=== PATIENT | female | born 1995 | race African-American/Black ===

== ENCOUNTER 2020-01-01 15:37 | Emergency (ER) | payer OTHER, SELFPAY ==
[2020-01-01 15:45] VITALS: BP 120/77; PULSE 91; RESP 16; TEMP 36.6; O2SAT 100
--- NOTE | 2020-01-01 15:45 | ED.GENADULT ---
HPI - General Adult General Chief complaint: Upper Respiratory Infection Stated complaint: SORE THROAT Time Seen by Provider: 01/01/20 15:51 Source: patient and RN notes reviewed Mode of arrival: ambulatory Limitations: no limitations History of Present Illness HPI narrative: This patient had onset on Saturday, 4 days ago, of a sore throat without any fever. She is not had any ear pain or drainage from the ears. She said no nasal drainage. She has had no cough. She has had no rashes. She has had no nausea, no vomiting, no diarrhea. She has had no hematuria, no dysuria, no pyuria. She has not been traveling. She said no known exposure to anyone with strep throat, mono, influenza, bronchitis, pneumonia that she is aware of. Related Data Home Medications Medication Instructions Recorded Confirmed Antbiotic 01/01/20 ibuprofen 200 mg PO Q6H PRN 01/01/20 01/01/20 ckgylaiwcrbjo-RN-eulwmbadwtkhb ml PO 01/01/20 [Vicks DayQuil Cold-Flu Relief] Allergies Allergy/AdvReac Type Severity Reaction Status Date / Time No Known Allergies Allergy Verified 01/01/20 15:49 Review of Systems Review of Systems: Narrative: CONSTITUTIONAL: Denies fever, chills, or sweats. Noncontributory except as pertains the past medical history and the history of the present illness. EYES: Denies visual changes, redness, or discharge. ENT: Denies rhinorrhea, congestion, sore throat, or otalgia. CARDIOVASCULAR: Denies chest pain, palpitations, or edema. RESPIRATORY: Denies cough or dyspnea. GASTROINTESTINAL: Denies abdominal pain, nausea, vomiting, or diarrhea. GENITOURINARY: Denies dysuria or hematuria. SKIN: Denies rash or itching. MUSCULOSKELETAL: Denies back pain, joint pain, or myalgia. NEUROLOGIC: Denies headache, numbness, or weakness. PSYCHIATRIC: Denies anxiety or depression. PMFSH Comments At time of signature, I have reviewed and agree with nursing past medical, surgical, social, and family history.Please see nursing chart for further information. There is no relevant family history pertinent to the presenting complaint. Exam Narrative: Exam Narrative: GENERAL: Well-appearing, well-nourished, and in no acute distress. HEAD: Normocephalic, atraumatic. EYES: PERRLA and EOMI. EARS: TM's clear bilaterally and the canals are clear. NOSE: Nares clear, no rhinorrhea or epistaxis. THROAT:Mucous membranes moist.Oropharynx is erythematous with exudates. NECK:Supple.No adenopathy of the neck, supraclavicular, axillary, or inguinal areas. There are no wheezes, no rales, no retractions, no use accessory muscles RESPIRATORY: No respiratory distress. Airway patent. Respirations non-labored. Clear to auscultation. Respirations. Patient's not cyanotic and not dyspneic. HEART: Regular rate and rhythm. No murmur heard. Normal peripheral pulses. ABDOMEN: Soft, nontender, nondistended, normal active bowel sounds.No masses. NO rebound or guarding, No organomegaly. There is no CVA pain. No pain McBurney's point. Patient is a negative Fenton sign and negative Rovsing sign. There are no pulsatile masses and no audible bruits. EXTREMITIES: No clubbing/cyanosis/ edema. Normal strength & range of motion. SKIN: Warm, dry.Normal color. No rashes or skin lesions. Patient is well-nourished well-hydrated and has moist mucous membranes and no tenting of the skin. NEURO: Alert and oriented. CN 2-12 grossly intact. No focal deficits. PSYCH: Normal mood and affect. Course Vital Signs Vital signs: Patient is afebrile and the other vital signs within normal limits. Medical Decision Making MDM Narrative Medical decision making narrative: Pharyngitis, possible strep throat. Lab Data Lab results narrative: The rapid strep test is negative and patient is aware of this the time the office visit and that a throat culture is pending and its purpose and timeframe to become available. Discharge Plan Discharge Patient Disposition: Home, Self-Care Condition: Stable Instruc
== END 2020-01-01 16:14 | disposition home or self-care (01) ==
PROVIDERS: Emergency Provider Family Medicine; PCP Family Medicine
DX: J02.9 Acute pharyngitis, unspecified (principal)
CPT/HCPCS: 87081; 87880; 99203; G0463

== ENCOUNTER 2020-01-23 15:49 | Emergency (ER) | payer OTHER, SELFPAY ==
[2020-01-23 15:51] VITALS: BP 117/83; PULSE 118; RESP 18; TEMP 36.6; O2SAT 97
--- NOTE | 2020-01-23 16:19 | ED.FEVER ---
HPI - Fever General Chief Complaint: Fever Stated Complaint: fever and cough Time Seen by Provider: 01/23/20 15:58 Source: patient and family Mode of arrival: ambulatory Limitations: no limitations History of Present Illness HPI Narrative: Patient is a 24-year-old female who presents emergency department for evaluation of flulike symptoms with fever chills body ache rhinorrhea congestion cough that began last night has not taken anything for her symptoms other than ibuprofen presents in no distress denies any vomiting diarrhea and on arrival is resting comfortably in the room in no distress Related Data Allergies Allergy/AdvReac Type Severity Reaction Status Date / Time No Known Allergies Allergy Verified 01/23/20 15:54 Review of Systems Review of Systems: All systems reviewed & are unremarkable except as noted in HPI and below PMFSH Social History Social History Gender identity (if verbalized by the patient): Female Exam Narrative: Exam Narrative: GENERAL: Well-appearing, well-nourished, and in no acute distress. HEAD: Normocephalic, atraumatic. EYES: PERRLA and EOMI. ENT: Nares clear, no rhinorrhea or epistaxis. Mucous membranes moist. Oropharynx without tonsillar hypertrophy exudate or other lesions. CHEST: Clear to auscultation. No respiratory distress. No wheezes rales or rhonchi HEART: Regular rate and rhythm. No murmur heard. EXTREMITIES: Normal range of motion. No edema. SKIN: Warm, dry, no rash. NEURO: No focal deficits. Alert and oriented x3. PSYCH: Normal mood and affect. 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 Patient in the room in no distress resting comfortably felt appropriate for outpatient reevaluation Vital Signs Vital signs: Vital Signs Temperature 97.9 F 01/23/20 15:51 Pulse Rate 118 H 01/23/20 15:51 Respiratory Rate 18 01/23/20 15:51 Blood Pressure 117/83 01/23/20 15:51 Pulse Oximetry 97 01/23/20 15:51 Temperature 97.9 F 01/23/20 15:51 Pulse Rate 118 H 01/23/20 15:51 Respiratory Rate 18 01/23/20 15:51 Blood Pressure 117/83 01/23/20 15:51 Pulse Oximetry 97 01/23/20 15:51 MDM - Fever MDM Narrative Medical decision making narrative: Patient with likely viral syndrome in the room in no distress aware of case findings treatment plan and diagnosis agreeing to follow-up as Lab Data Labs: Influenza A Screen Negative Reference Range: Negative Influenza B Screen Negative Reference Range: Negative Discharge Plan Discharge Clinical Impression: Acute viral syndrome Patient Disposition: Home, Self-Care Condition: Stable Instructions: Antibiotic Form, Viral Syndrome (ED) Additional Instructions: Follow up with your primary care provider within 5-7 days. Go to ER for shortness of breath, difficulty breathing, chest pain, fever/chills, weakness, nauseau/vomitting, etc. or any other concerns. Stay well-hydrated Take any prescribed medications as directed. Follow patient education sheets If you do not have a drug allergy to tylenol or motrin and can tolerate it then take tylenol or motrin as needed for discomfort/pain. Prescriptions: New ibuprofen [IBU] 600 mg tablet 600 mg PO Q6H PRN (Reason: fever or pain) Qty: 10 RF: 0 Follow-up/Referrals: Michelle,Anisa Olsen MD [Primary Care Provider] - Stand Alone Forms: Work/School Release IP
[2020-01-23 16:49] VITALS: BP 120/70; PULSE 100; RESP 20; TEMP 36.8; O2SAT 98
== END 2020-01-23 16:51 | disposition home or self-care (01) ==
PROVIDERS: Emergency Provider Emergency Medicine; PCP Family Medicine
DX: B34.9 Viral infection, unspecified (principal)
CPT/HCPCS: 87804; 99283

== ENCOUNTER 2020-07-02 14:44 | Emergency (ER) | payer OTHER, SELFPAY ==
[2020-07-02 14:49] VITALS: BP 144/91; PULSE 118; RESP 18; TEMP 37.6; O2SAT 100
--- NOTE | 2020-07-02 16:18 | ED.GENADULT ---
HPI - General Adult General Chief complaint: Upper Respiratory Infection Stated complaint: SORE THROAT Time Seen by Provider: 07/02/20 16:01 History of Present Illness HPI narrative: Patient is a 24-year-old female who presents to the ER with sore throat. Ongoing for the last day. Associated with myalgias. No documented fevers. No chills/sweats/chest pain/shortness of breath. No cough. Recently a coworker tested positive for COVID but she does not know if she was in direct contact with them. No known strep exposures either. Related Data Allergies Allergy/AdvReac Type Severity Reaction Status Date / Time No Known Allergies Allergy Verified 01/23/20 15:54 Review of Systems Review of Systems: All systems reviewed & are unremarkable except as noted in HPI and below Constitutional: Constitutional: Denies chills and Denies fever(s) ENT: Denies nasal congestion and Reports sore throat Cardiovascular: Cardiovascular: Denies chest pain Respiratory: Respiratory: Denies cough, Denies dyspnea and Denies wheezing Musculoskeletal: Comments: Myalgias PMFSH Past Medical History Medical History (Updated 07/02/20 @ 16:27 by Benji Diego MD) Healthy female adult Surgical History Surgical History (Updated 07/02/20 @ 16:19 by Benji Diego MD) No significant past surgical history Social History Social History (Updated 07/02/20 @ 16:19 by Benji Diego MD) Smoking status: Never smoker Substance use: never Gender identity (if verbalized by the patient): Female Exam Narrative: Exam Narrative: GENERAL: Well-appearing, well-nourished, and in no acute distress. HEAD: Normocephalic, atraumatic. ENT: Mucous membranes moist. Mild tonsillar hypertrophy with erythema and exudate bilaterally. Uvula midline and nonedematous. Normal-appearing tongue and dentition. CHEST: Clear to auscultation. No respiratory distress. HEART: Tachycardic and regular. Normal peripheral pulses. NEURO: Alert and oriented x3. Course Course Emergency Course: Strep test negative. COVID swab pending. Discussed with patient that she should self isolate follow-up with her PCP. Vital Signs Vital signs: Vital Signs Temperature 99.7 F H 07/02/20 14:49 Pulse Rate 118 H 07/02/20 14:49 Respiratory Rate 18 07/02/20 14:49 Blood Pressure 144/91 H 07/02/20 14:49 Pulse Oximetry 100 07/02/20 14:49 Temperature 99.7 F H 07/02/20 14:49 Pulse Rate 118 H 07/02/20 14:49 Respiratory Rate 18 07/02/20 14:49 Blood Pressure 144/91 H 07/02/20 14:49 Pulse Oximetry 100 07/02/20 14:49 Medical Decision Making Vital Signs Vital Signs: Vital Signs Temperature 99.7 F H 07/02/20 14:49 Pulse Rate 118 H 07/02/20 14:49 Respiratory Rate 18 07/02/20 14:49 Blood Pressure 144/91 H 07/02/20 14:49 Pulse Oximetry 100 07/02/20 14:49 Temperature 99.7 F H 07/02/20 14:49 Pulse Rate 118 H 07/02/20 14:49 Respiratory Rate 18 07/02/20 14:49 Blood Pressure 144/91 H 07/02/20 14:49 Pulse Oximetry 100 07/02/20 14:49 Lab Data Labs: Lab Results 07/02/20 Range/Units 15:00 SARS-CoV-2 RNA (RT-PCR) Pending Strep Screen Presumptive Negative *(Reference Range: Negative)* Discharge Plan Discharge Clinical Impression: Person under investigation for COVID-19 Patient Disposition: Home, Self-Care Condition: Stable Instructions: COVID-19 (Coronavirus Disease 2019) (ED) Additional Instructions: Your strep test was negative. Your COVID test is pending. Take Tylenol as needed for fevers and body aches. Make sure to stay hydrated. Your results should return in 2 to 3 days and will be sent to your primary care doctors. Additionally your strep test will be sent for culture and if that is positive you will be contacted. You should self quarantine for 14 days since he became symptomatic and you will need to talk to your doctor about returning to work. Return
[2020-07-02 16:36] VITALS: BP 132/78; PULSE 78; RESP 20; O2SAT 99
[2020-07-03 13:06] LABS: SARS-CoV-2 RNA PCR Negative
== END 2020-07-02 16:37 | disposition home or self-care (01) ==
PROVIDERS: Emergency Provider Emergency Medicine; PCP Family Medicine
DX: J02.9 Acute pharyngitis, unspecified (principal); Z20.828 Contact with and (suspected) exposure to other viral communicable diseases
CPT/HCPCS: 87081; 87635; 87880; 99283; C9803; U0003

== ENCOUNTER 2020-10-24 10:35 | Outpatient (CLI) | payer OTHER, SELFPAY ==
[2020-10-24 11:52] LABS: Basophils Percent Auto 0.5 % (0.2-1.2); Eosinophils Absolute Auto 0.1 K/mm3 (0-0.3); Eosinophils Percent Auto 1.6 % (0-4.4); Hematocrit 39.2 % (37.0-47.0); Hemoglobin 13.2 g/dL (12.0-15.0); Immature Granulocyte Absolute 0.01 K/mm3 (0.00-0.031); Immature Granulocyte Percent A 0.2 % (0-0.5); Lymphocytes Absolute Auto 1.97 K/mm3 (0.9-3.2); Lymphocytes Percent Auto 31.4 % (18.3-44.2); Mean Corpuscular HGB Conc 33.7 g/dl (32-36); Mean Corpuscular Hemoglobin 31.3 pg (26-34); Mean Corpuscular Volume 92.9 fl (80-100); Mean Platelet Volume 9.9 fl (7.4-10.4); Monocytes Absolute Auto 0.6 K/mm3 (0.1-0.6); Monocytes Percent Auto 8.8 % (2.6-8.5); Neutrophils Absolute Auto 3.6 K/mm3 (1.3-6.7); Neutrophils Percent Auto 57.5 % (45.5-73.1); Platelet Count Result 305 k/mm3 (150-375); Red Blood Count 4.22 M/mm3 (4.2-5.4); Red Cell Distribution Width 11.9 % (11.5-14.5); White Blood Count 6.3 K/mm3 (4.5-10.0)
[2020-10-24 12:52] LABS: Hepatitis B Surface Antigen Negative (Negative)
[2020-10-24 13:10] LABS: Hepatitis C Virus Antibody Negative (Negative)
[2020-10-25 10:15] LABS: Rapid Plasma Reagin Non-Reactive (NonReactive)
== END 2020-10-24 10:36 | disposition home or self-care (01) ==
PROVIDERS: PCP Family Medicine; Visit Provider Obstetrics & Gynecology
DX: N92.1 Excessive and frequent menstruation with irregular cycle (principal); Z11.3 Encounter for screening for infections with a predominantly sexual mode of transmission
CPT/HCPCS: 36415; 84443; 85025; 86592; 86695; 86696; 86803; 87340

== ENCOUNTER 2023-05-23 20:11 | Emergency (ER) | payer BC, SELFPAY ==
[2023-05-23] VITALS (7 sets, daily range): BP systolic 120–134; BP diastolic 79–84; PULSE 89–112; RESP 16–20; TEMP 36.6; O2SAT 100
--- NOTE | ~2023-05-23 | US_ITS ---
EXAMINATION: US OB <= 14 weeks fetus INDICATION: vaginal bleeding, cramping TECHNIQUE: Sonography of the pelvis was performed by transabdominal techniques. COMPARISON: None. RESULT: Uterus: Orientation: Anteverted. 2.1 x 8.8 x 9.3 cm. Myometrium: homogeneous echogenicity. Cervical length 3.7 cm, with proximal funneling. Intrauterine gestational sac: Single present. Yolk sac: Not visualized . Embryo: Single present. [place]berry rump length: 6.56 cm, corresponding gestational age 12 w eeks, 6 days. Gestational heart rate: present 157 bpm. Subgestational hematoma: Absent . Right ovary: 2.9 x 1.4 x 2.1 cm. Normal sonographic appearance with physiologic follicles. . No ad nexal mass. Left ovary: 3.3 x 1.8 x 3.5 cm. Normal sonographic appearance with physiologic follicles. . 2.5 cm simple cyst. Pelvis free fluid: None. IMPRESSION: Single, live intrauterine gestation. Estimated Gestational Age: 12 weeks, 6 days by crown rump length. ELIZABETH by ultrasound 11/29/2023. Funneling present in the proximal cervix. Recommend close clinical and sonographic follow-up. Reviewed, dictated and finalized at location [facility]. IMPRESSION: Single, live intrauterine gestation. Estimated Gestational Age: 12 weeks, 6 days by crown rump length. ELIZABETH by ultra sound 11/29/2023. Funneling present in the proximal cervix. Recommend close clinical and sonograp hic follow-up.
[2023-05-23 20:59] LABS: Basophils Absolute Auto 0.1 K/mm3 (0.0-0.1); Basophils Percent Auto 0.4 % (0.2-1.2); Eosinophils Absolute Auto 0.2 K/mm3 (0-0.3); Eosinophils Percent Auto 1.9 % (0-4.4); Hematocrit 33.7 % (37.0-47.0); Hemoglobin 11.4 g/dL (12.0-15.0); Immature Granulocyte Absolute 0.03 K/mm3 (0.00-0.031); Immature Granulocyte Percent A 0.2 % (0-0.5); Lymphocytes Percent Auto 21.8 % (18.3-44.2); Mean Corpuscular HGB Conc 33.8 g/dl (32-36); Mean Corpuscular Hemoglobin 31.6 pg (26-34); Mean Corpuscular Volume 93.4 fl (80-100); Mean Platelet Volume 9.5 fl (7.4-10.4); Monocytes Absolute Auto 0.8 K/mm3 (0.1-0.6); Monocytes Percent Auto 6.3 % (2.6-8.5); Neutrophils Absolute Auto 8.6 K/mm3 (1.3-6.7); Neutrophils Percent Auto 69.4 % (45.5-73.1); Platelet Count Result 280 k/mm3 (150-375); Red Blood Count 3.61 M/mm3 (4.2-5.4); Red Cell Distribution Width 12.1 % (11.5-14.5); White Blood Count 12.4 K/mm3 (4.5-10.0)
--- NOTE | 2023-05-23 20:59 | ED.FEMALEGU ---
HPI - Female Genitourinary General Chief complaint: Vaginal Bleeding <Joel Gomez PA-C - Last Filed: 05/24/23 01:06> Stated complaint: vaginal bleeding , 12 weeks <DEMIAN Florence Last Filed: 05/24/23 01:06> Time Seen by Provider: 05/23/23 20:23 <Joel Gomez PA-C - Last Filed: 05/24/23 01:06> Source: patient <DEMIAN Florence Last Filed: 05/24/23 01:06> Mode of arrival: ambulatory <DEMIAN Florence Last Filed: 05/24/23 01:06> Limitations: no limitations <Joel Gomez PA-C - Last Filed: 05/24/23 01:06> History of Present Illness HPI Narrative: This is a 27-year-old female who is around 12 weeks and presents to the ED with chief complaint of vaginal bleeding with associated lower abdominal cramping beginning about an hour prior to arrival. Patient states that she went to use the restroom and noticed that there was a lot of blood in the toilet. She reports that she had some abdominal cramping in the suprapubic abdomen that lasted for a few seconds and then went away. States she is currently pain-free and not having any nausea or vomiting. Denies LOC. <Joel Gomez PA-C - Last Filed: 05/24/23 01:06> Related Data Home medications: Home Medications Medication Instructions Recorded Confirmed amoxicillin 250 mg capsule 250 mg PO Q12H 05/01/23 prenat.vits,piedad,sel-wxvh-kmfav 1 tablet PO DAILY 05/01/23 <DEMIAN Florence Last Filed: 05/24/23 01:06> Allergies/Adverse reactions: Allergies Allergy/AdvReac Type Severity Reaction Status Date / Time grass pollen AdvReac Mild Itching Verified 05/23/23 20:13 and watering eyes <DEMIAN Florence Last Filed: 05/24/23 01:06> [facility] Past Medical History Medical History: Medical History HSV (herpes simplex virus) infection Type 1 <DEMIAN Florence Last Filed: 05/24/23 01:06> Family History Family History: Family History Grandparent Diabetes mellitus Heart disease Mother Ovarian cyst <DEMIAN Florence Last Filed: 05/24/23 01:06> Social History Social History: Social History Smoking status: Never smoker Alcohol intake: current Drinks per week: 1 Substance use: never Lack of Transportation: No Lack of Food: Never True Current Housing: I Have Housing Concerned About Future Housing: No Difficulty Paying Gas/Electric Bills: No Difficulty Paying for Meds: No Currently Unemployed: No Education: Bachelor's Degree Living arrangements: alone Occupation/Education: occupation Gender identity (if verbalized by the patient): Female Sexual Orientation (if Verbalized by the Patient): Straight or Heterosexual Spiritual care concerns: No <DEMIAN Florence Last Filed: 05/24/23 01:06> Exam Narrative: GENERAL: Well-appearing, well-nourished, and in no acute distress. HEAD: Normocephalic, atraumatic. EYES: PERRLA and EOMI. ENT: Nares clear, no rhinorrhea or epistaxis. Mucous membranes moist. Oropharynx without tonsillar hypertrophy exudate or other lesions. NECK: Supple. No adenopathy or masses. CHEST: No respiratory distress. Clear to auscultation. No wheezes rales or rhonchi HEART: Regular rate and rhythm. No murmur heard. Normal peripheral pulses. ABDOMEN: Soft, nontender, nondistended, normal active bowel sounds. MSK: Normal range of motion. No edema. SKIN: Warm, dry, no rash. NEURO: Alert and oriented x3. No focal deficits. PSYCH: Normal mood and affect. : Pelvic exam performed with female tech digital strategist present: Cervical os open with dark blood products protruding. No other vaginal discharge noted. 4 swabs were used to clear the bleeding. <DEMIAN Florence Last Filed: 05/24/23 01:06> Course C
[2023-05-23 21:09] LABS: Alanine Aminotransferase 24 U/L (6-35); Albumin Level 3.8 g/dL (3.5-5.1); Alkaline Phosphatase 60 U/L (38-126); Anion Gap 5 mmol/L (8-16); Aspartate Amino Transferase 25 U/L (14-36); Bilirubin,Total 0.3 mg/dL (0.2-1.3); Blood Urea Nitrogen 9 mg/dL (7-17); Calcium 8.9 mg/dL (8.4-10.2); Carbon Dioxide 24 mmol/L (22-30); Chloride 103 mmol/L (98-107); Estimated CRCL calculation 141 ml/min; Estimated Glomerular Filt Rate > 60; Glucose 80 mg/dL (65-110); Potassium 3.7 mmol/L (3.4-5.0); Sodium 132 mmol/L (137-145)
== END 2023-05-23 23:18 | disposition home or self-care (01) ==
PROVIDERS: Emergency Provider Physician Assistant; PCP Family Medicine
DX: O20.9 Hemorrhage in early pregnancy, unspecified (principal); Z3A.12 12 weeks gestation of pregnancy
CPT/HCPCS: 36415; 76801; 80053; 84702; 85025; 85461; 86850; 86900; 86901; 87070; 87491; 87591; 87808; 99284

== ENCOUNTER 2023-05-30 16:33 | Outpatient (CLI) | payer BC, SELFPAY ==
[2023-05-30 17:42] LABS: Thyroid Stimulating Hormone 0.865 uIU/mL (0.465-4.680)
[2023-05-30 17:50] LABS: HIV 1/2 Ab P24 Ag Result Negative (Negative)
[2023-05-30 18:39] LABS: Vitamin D 25 Hydroxy 25.2 ng/mL
[2023-05-30 19:07] LABS: Hepatitis B Surface Antigen Negative (Negative); Rubella IgG Antibody 19.6 IU/ML
[2023-05-30 19:10] LABS: Hepatitis C Virus Antibody Negative (Negative)
[2023-05-31 16:39] LABS: Rapid Plasma Reagin Non-Reactive (NonReactive)
[2023-06-02 12:55] LABS: Varicella IgG Antibody <135.00 Index (>=165.00)
[2023-06-10 18:07] LABS: CF Result NEGATIVE (NEGATIVE)
== END 2023-05-30 16:34 | disposition home or self-care (01) ==
LOC: ANHLAB 16:34
PROVIDERS: PCP Family Medicine; Visit Provider Registered Nurse
DX: Z34.90 Encounter for supervision of normal pregnancy, unspecified, unspecified trimester (principal); Z3A.00 Weeks of gestation of pregnancy not specified
CPT/HCPCS: 36415; 81220; 81243; 82306; 84443; 86592; 86703; 86762; 86787; 86803; 87086; 87340; G0432

== ENCOUNTER 2023-08-27 11:40 | Outpatient (RCR) | payer BC, SELFPAY ==
[2023-08-27 12:33] VITALS: BP 111/72; PULSE 82
== END 2023-10-10 10:21 | disposition home or self-care (01) ==
LOC: ANHOBOP 11:40
PROVIDERS: PCP Family Medicine; Visit Provider Obstetrics & Gynecology
DX: O36.8120 Decreased fetal movements, second trimester, not applicable or unspecified (principal); Z3A.26 26 weeks gestation of pregnancy
CPT/HCPCS: 59025

== ENCOUNTER 2023-09-23 07:00 | Outpatient (CLI) | payer BC, SELFPAY ==
[2023-09-23 07:31] LABS: Glucose Fasting Gestational 86 mg/dL (>/=95)
[2023-09-23 09:12] LABS: Glucose 1 Hour Gest 141 mg/dL (>/=180)
[2023-09-23 09:59] LABS: Glucose 2 Hour Gest 106 mg/dL (>/= 155)
[2023-09-23 11:45] LABS: Glucose 3 Hour Gest 86 mg/dL (>/=140)
== END 2023-09-23 07:01 | disposition home or self-care (01) ==
LOC: ANHLAB 07:01
PROVIDERS: PCP Family Medicine; Visit Provider Obstetrics & Gynecology
DX: O99.810 Abnormal glucose complicating pregnancy (principal); Z3A.00 Weeks of gestation of pregnancy not specified
CPT/HCPCS: 36415; 82951; 82952

== ENCOUNTER 2023-10-31 16:55 | Outpatient (CLI) | payer BC, SELFPAY ==
[2023-10-31 17:27] LABS: Hematocrit 37.2 % (37.0-47.0); Hemoglobin 12.2 g/dL (12.0-15.0); Mean Corpuscular HGB Conc 32.8 g/dl (32-36); Mean Corpuscular Volume 94.7 fl (80-100); Mean Platelet Volume 9.6 fl (7.4-10.4); Platelet Count Result 283 k/mm3 (150-375); Red Blood Count 3.93 M/mm3 (4.2-5.4); Red Cell Distribution Width 13.1 % (11.5-14.5); White Blood Count 12.9 K/mm3 (4.5-10.0)
[2023-10-31 18:18] LABS: HIV 1/2 Ab P24 Ag Result Negative (Negative)
[2023-11-01 16:37] LABS: Rapid Plasma Reagin Non-Reactive (NonReactive)
== END 2023-10-31 16:56 | disposition home or self-care (01) ==
PROVIDERS: PCP Family Medicine; Visit Provider Obstetrics & Gynecology
DX: Z34.93 Encounter for supervision of normal pregnancy, unspecified, third trimester (principal)
CPT/HCPCS: 36415; 85027; 86592; 86703; G0432

== ENCOUNTER 2023-11-05 06:51 | Inpatient (IN) | payer BC, SELFPAY ==
[2023-11-05] VITALS (38 sets, daily range): BP systolic 114–212; BP diastolic 67–181; PULSE 93–156; RESP 16–18; TEMP 36.1–37.1; O2SAT 87–100; BMI 44.4
[2023-11-05 07:21] LABS: Basophils Percent Auto 0.4 % (0.2-1.2); Eosinophils Absolute Auto 0.2 K/mm3 (0-0.3); Eosinophils Percent Auto 1.9 % (0-4.4); Hematocrit 37.4 % (37.0-47.0); Hemoglobin 12.3 g/dL (12.0-15.0); Immature Granulocyte Absolute 0.05 K/mm3 (0.00-0.031); Immature Granulocyte Percent A 0.5 % (0-0.5); Lymphocytes Absolute Auto 2.37 K/mm3 (0.9-3.2); Lymphocytes Percent Auto 21.7 % (18.3-44.2); Mean Corpuscular HGB Conc 32.9 g/dl (32-36); Mean Corpuscular Hemoglobin 30.9 pg (26-34); Mean Platelet Volume 9.6 fl (7.4-10.4); Monocytes Absolute Auto 0.6 K/mm3 (0.1-0.6); Monocytes Percent Auto 5.8 % (2.6-8.5); Neutrophils Absolute Auto 7.6 K/mm3 (1.3-6.7); Neutrophils Percent Auto 69.7 % (45.5-73.1); Platelet Count Result 264 k/mm3 (150-375); Red Blood Count 3.98 M/mm3 (4.2-5.4); Red Cell Distribution Width 13.1 % (11.5-14.5); White Blood Count 10.9 K/mm3 (4.5-10.0)
[2023-11-05] MEDS: LACTATED RINGERS 1,000 ML 125 ML IV CONT (07:30)
[2023-11-05] MEDS: OXYTOCIN 30 UNITS/NS 500 ML 30 UNITS/500 ML BAG 999 UNITS IV CONT (07:52)
--- NOTE | 2023-11-05 08:16 | PM.IMHP ---
H&P: HPI History of Present Illness Date/Time: 11/05/23 08:16 Chief Complaint: Leaking of fluid Narrative: She is a G1 at 36 4 presented with leaking of clear fluid at she also started having contractions. On arrival to [facility] she was 6cm. PNC significant for second trimester bleeding which she has a cervical polyp. ASCUS pap HPV biopsy w/o severe dysplasia. GBS neg. Review of Systems Review of Systems: All systems reviewed & are unremarkable except as noted in HPI and below Constitutional: Constitutional: Reports no additional constitutional complaints and Denies headache(s) Eyes: Eyes: Denies spots in vision ENT: Reports system reviewed and no additional complaints, except as documented and Denies headache(s) Cardiovascular: Cardiovascular: Denies chest pain and Denies dyspnea Respiratory: Respiratory: Denies dyspnea Gastrointestinal: Gastrointestinal: Reports no additional gastrointestinal complaints Genitourinary: Genitourinary: Reports amenorrhea Musculoskeletal: Musculoskeletal: Reports no additional musculoskeletal complaints Integumentary/Breasts: Skin/Breast: Denies breast mass and Denies rash Neurologic: Denies headache(s) Psychiatric: Psychiatric: Reports no additional psychiatric complaints [facility] Past Medical History Medical History BMI 40.0-44.9, adult Cervical polyp HSV (herpes simplex virus) infection Type 1 Family History Family History Grandparent Diabetes mellitus Heart disease Mother Ovarian cyst Father No problems noted. Sibling No problems noted. Social History Social History Smoking status: Never smoker Second hand tobacco smoke exposure: No Alcohol intake: current Drinks per week: 1 Substance use: never Substance use type: does not use Lack of Transportation: No Lack of Food: Never True Current Housing: I Have Housing Concerned About Future Housing: No Difficulty Paying Gas/Electric Bills: No Difficulty Paying for Meds: No Currently Unemployed: No Education: Bachelor's Degree Difficulty w/ Childcare or Family Care: No Living arrangements: alone Occupation/Education: occupation Additional occupation/education comments: [employer] Gender identity (if verbalized by the patient): Female Sexual Orientation (if Verbalized by the Patient): Straight or Heterosexual Spiritual care concerns: No Meds Home Medications and Allergies Home Medications Medication Instructions Recorded Confirmed Type cholecalciferol (vitamin D3) 50 50 mcg PO DAILY 07/31/23 09/23/23 History mcg (2,000 unit) capsule vitamins with calcium 1 tablet PO DAILY #90 tabs 10/02/23 10/02/23 Rx no.72-iron 29 mg-folic acid 1 mg tablet Allergies Allergy/AdvReac Type Severity Reaction Status Date / Time grass pollen AdvReac Mild Itching Verified 11/02/23 14:33 and watering eyes Vital Signs Vital Signs - 24 hr 11/05/23 07:28 11/05/23 07:28 11/05/23 07:28 Temperature Pulse Rate Blood Pressure 127/79 Pulse Oximetry 95 95 11/05/23 07:28 11/05/23 07:29 11/05/23 07:31 Temperature Pulse Rate 113 H 107 H Blood Pressure 146/94 H Pulse Oximetry 94 100 11/05/23 07:32 11/05/23 07:32 11/05/23 07:34 Temperature Pulse Rate 109 H Blood Pressure 129/87 Pulse Oximetry 99 99 11/05/23 07:35 11/05/23 07:36 11/05/23 07:37 Temperature Pulse Rate 111 H Blood Pressure 135/83 Pulse Oximetry 87 L 96 88 L 11/05/23 07:38 11/05/23 07:38 11/05/23 07:39 Temperature Pulse Rate 115 H Blood Pressure 128/77 Pulse Oximetry 91 94 11/05/23 07:40 11/05/23 07:42 11/05/23 07:43 Temperature Pulse Rate 115 H 116 H Blood Pressure 120/84 126/87 Pulse Oximetry 100
--- NOTE | 2023-11-05 08:19 | WPDANESEPP ---
Anes - Eval Pre Procedure Procedure: labor epidural Date/Time: 11/05/23 08:19 Surgeon: guillaume Preop Diagnosis: pain during labor Pre Op Diagnosis: leaking/contractions Patient Data Age: 28 Gender: F Height: 1.66 m Weight: 123 kg Last Vital Signs Temp 36.2 C L 11/05/23 07:56 Pulse 115 H 11/05/23 08:10 BP 126/83 11/05/23 08:10 Pulse Ox 100 11/05/23 07:54 Allergies Allergy/AdvReac Type Severity Reaction Status Date / Time grass pollen AdvReac Mild Itching Verified 11/02/23 14:33 and watering eyes Home Medications Medication Instructions Recorded Confirmed Type cholecalciferol (vitamin D3) 50 50 mcg PO DAILY 07/31/23 09/23/23 History mcg (2,000 unit) capsule vitamins with calcium 1 tablet PO DAILY #90 tabs 10/02/23 10/02/23 Rx no.72-iron 29 mg-folic acid 1 mg tablet Laboratory Tests 11/05/23 07:11 WBC 10.9 H K/mm3 (4.5-10.0) RBC 3.98 L M/mm3 (4.2-5.4) Hgb 12.3 g/dL (12.0-15.0) Hct 37.4 % (37.0-47.0) MCV 94.0 fl (80-100) MCH 30.9 pg (26-34) MCHC 32.9 g/dl (32-36) RDW 13.1 % (11.5-14.5) Plt Count 264 k/mm3 (150-375) MPV 9.6 fl (7.4-10.4) Immature Gran % (Auto) 0.5 % (0-0.5) Neut % (Auto) 69.7 % (45.5-73.1) Lymph % (Auto) 21.7 % (18.3-44.2) Glenn % (Auto) 5.8 % (2.6-8.5) Eos % (Auto) 1.9 % (0-4.4) Baso % (Auto) 0.4 % (0.2-1.2) Lymph # (Auto) 2.37 K/mm3 (0.9-3.2) Glenn # (Auto) 0.6 K/mm3 (0.1-0.6) Eos # (Auto) 0.2 K/mm3 (0-0.3) Baso # (Auto) 0.0 K/mm3 (0.0-0.1) Abs Immat Gran (auto) 0.05 H K/mm3 (0.00-0.031) Absolute Neuts (auto) 7.6 H K/mm3 (1.3-6.7) Absolute Nucleated RBC 0.0 K/mm3 (0.0-0.012) Nucleated RBC % 0.0 % (0.0-0.2) RPR Pending Blood Type O Positive Antibody Screen Pending Patient hx anesthesia problems: none Family hx anesthesia problems: none Results Review: All pre-operative results and documents have been reviewed as part of the pre-operative evaluation. [facility] Past Medical History Medical History BMI 40.0-44.9, adult Cervical polyp HSV (herpes simplex virus) infection Type 1 Family History Family History Grandparent Diabetes mellitus Heart disease Mother Ovarian cyst Father No problems noted. Sibling No problems noted. Social History Social History Smoking status: Never smoker Second hand tobacco smoke exposure: No Alcohol intake: current Drinks per week: 1 Substance use: never Substance use type: does not use Lack of Transportation: No Lack of Food: Never True Current Housing: I Have Housing Concerned About Future Housing: No Difficulty Paying Gas/Electric Bills: No Difficulty Paying for Meds: No Currently Unemployed: No Education: Bachelor's Degree Difficulty w/ Childcare or Family Care: No Living arrangements: alone Occupation/Education: occupation Additional occupation/education comments: [employer] Gender identity (if verbalized by the patient): Female Sexual Orientation (if Verbalized by the Patient): Straight or Heterosexual Spiritual care concerns: No Exam Day of Procedure 11/05/23 08:19
[2023-11-05] MEDS: OXYTOCIN 30 UNITS/NS 500 ML 30 UNITS/500 ML BAG 125 UNITS IV CONT (09:02)
[2023-11-05] MEDS: WITCH HAZEL 40 PADS 1 PAD TOPICAL (10:46)
[2023-11-05] MEDS: BENZOCAINE 20% AER SPR (*SP) 56 GM CAN 1 SPRAY TOPICAL (10:46)
--- NOTE | 2023-11-05 11:14 | OBPPTRN ---
Patient transferred to post room #291 via stretcher. Support person present. Oriented to unit, room, information board, rooming in, admission packet and security measures. Patient verbalizes understanding.
[2023-11-05 14:30] LABS: Rapid Plasma Reagin Non-Reactive (NonReactive)
--- NOTE | 2023-11-05 16:00 | PC.NURSE ---
[id number] Introductions were made, then consulted with patient to assess needs related to . Mother led the conversation with her?plans to feed?her and the?experience so far. Encouraged understanding of the benefits of skin to skin (demonstrating unwrapping infant and placing upright on her chest), stimulating with massage touch, changing positions to encourage wakefulness, how to watch for early feeding cues, responsive feeding, feeding on demand (aiming for 8-12 times in 24 hours, about every 2-3 hours), milk production, building/maintaining a milk supply, duration of feeding, signs of adequate intake/output and how to record on the feeding sheet. Mother works well with her with encouragement and education. Reviewed positioning and ear, shoulder, hip alignment, supporting the breast to facilitate a deep latch, asymmetrical latch (off-center), leading with the chin with a big, open, wide gape and body close to mother. Infant very sleepy and was unable to remain latched on at this time. Parents encouraged to wake and attempt to breastfeed infant within the hour and encouraged to call for assistance with feeding baby. Reviewed nutritive suckling (with good rocking jaw motion), swallows (dropping of the lower jaw) and how to listen for drinking at the breast (the ka sound). Reviewed comfort measures of healing with a warm, wet washcloth to rinse breast, then leave open to air-dry, good handwashing when or touching the breast/nipples to prevent infection. Mother voiced understanding of skin to skin, stimulating with massage touch, responsive feedings, hand expressed colostrum, talking to infant to encourage if it has been 2 -2.5 hours since the start of the last , to call if does not latch, or if there is discomfort with . Resources used for education were facilitated with the mom and baby guide. Inpatient resources provided with business card, feeding sheet, name written on the communication board, and the mom/baby guide. Parents voiced understanding of information, demonstrated learning and will call if there is a request for assistance. Reported to the Primary RN.
--- NOTE | 2023-11-05 20:43 | PM.OBDSVD ---
DS: Admitting Diagnosis Discharge Date 11/07/23 Admitting Diagnosis Active labor DS: Discharge Diagnosis Discharge Diagnosis (1) Vaginal delivery: Code(s): O80 - Encounter for full-term uncomplicated delivery Status: Acute OB - DS: Summary Hospital Course Hospital Course: She was admitted in active labor. She had an epidural placed on request. She had an uncomplicated vaginal delivery. She did well . Baby did well. She was discharged to home. OB Procedures : Ultrasound OB Procedures Intrapartum: Spontaneous Vag Delivery OB Procedures: : None Peripartum Data Delivery Method: Natural Vaginal complications: none Status at Discharge Functional status at discharge: independent ambulation Time Spent with Patient Time attestation: Total time spent providing and/or coordinating discharge services: Exam Const: General: cooperative Orientation/consciousness: oriented to person, oriented to place and oriented to time HENMT: Face/Nose/Sinus: Normal external nose present Eyes: General: appearance normal, both eyes and all related structures Resp: Effort & Inspection: normal respiratory effort GI: Inspection: normal to inspection Skin: General skin exam: normal color Neuro: General: oriented to person, oriented to place and oriented to time Extrem: General: normal to inspection and no calf tenderness Psych: Appearance: grossly normal Mental Status: mental status grossly normal DS: Data Data Completed and Pending Labs on day of discharge: Labs from last 24 hours 11/05/23 07:11 WBC 10.9 H RBC 3.98 L Hgb 12.3 Hct 37.4 MCV 94.0 MCH 30.9 MCHC 32.9 RDW 13.1 Plt Count 264 MPV 9.6 Immature Gran % (Auto) 0.5 Neut % (Auto) 69.7 Lymph % (Auto) 21.7 [place] % (Auto) 5.8 Eos % (Auto) 1.9 Baso % (Auto) 0.4 Lymph # (Auto) 2.37 [place] # (Auto) 0.6 Eos # (Auto) 0.2 Baso # (Auto) 0.0 Abs Immat Gran (auto) 0.05 H Absolute Neuts (auto) 7.6 H Absolute Nucleated RBC 0.0 Nucleated RBC % 0.0 RPR Non-reactive Blood Type O Positive Antibody Screen Negative Discharge Plan Discharge Attending physician on discharge: Garry Guerra Consulting providers: Julia Russo Jennifer L. Discharging Clinician: Garry Guerra Patient Disposition: Home, Self-Care Activity: may shower and pelvic rest Diet: regular Discharge Instructions: Education: Mom and Baby Guide Given to: Mother Follow-Up: Call your delivering provider's office for an appointment to be seen in: 4 Weeks Mom and baby should come to the [facility] for the follow-up appointment. Appointment Date/Time: November 08, 2023 at 9:00 am What to expect at your follow-up visit: Physical Assessment Call [phone] if you are unable to keep your appointment time. BREAST CARE: * Wear a snug supportive bra. * For engorgement discomfort: Breast Feeding/Pumping: * Apply warm moist washcloths * Express milk as needed to relieve engorgement * Wear loose clothing Bottle Feeding: * May apply ice packs * For sore nipples: * Identify correct latch-on/flange size for breast pump * Apply warm moist washcloths before and after nursing * Air dry nipples after nursing * May apply Lansinoh cream to nipples PERINEAL CARE: * Until bleeding stops, use your sanaz bottle after urinating * Change your pad frequently throughout the day * You may take sitz baths several times a day (fill your bathtub with warm water and soak for 20 minutes.) Do NOT bathe in the water * No tub baths until seen by your physician - You may shower ACTIVITY: * Rest as much as possible. * Do not exercise or lift anything heavier than your baby (such as laundry or other children.) * Avoid stairs or driving as much as possible. * Do not put anything into the vagina. No douc
--- NOTE | 2023-11-05 20:48 | PM.OBPRVD ---
OB - Vaginal Delivery Note Procedure Delivery date: 11/05/23 Events: Other ( rupture of membranes) Induction method: None Delivery monitor: External FHT Route of delivery: Episiotomy description: None Laceration Description: None Quantitative Blood Loss (ml): 150 Anesthesia type: Epidural Disposition: Floor Complications: No immediate complications Narrative: She was admitted for rupture of membranes and was in active labor. GBS neg. She had epidural placed on request. She dilated quickly to complete. She delivered a female over intact perineum. The nose and mouth suctioned at perineum with bulb. The shoulders and the rest of baby was delivered. Infant initially placed on maternal abdomen, crying. Delayed cord clamping for approximately 30 sec until it was determined to have baby go to warmer. The cord was doubly clamped and cut and infant taken to warmer. Cord blood and cord gases obtained. Pitocin started. It was then stopped since placenta not descending. Gentle traction on cord was maintained. The cord did avulse and the placenta was grasped in the lower uterine segment and was manually remove. The placenta was inspected and noted to be intact. Uterine tone was good. Minimal bleeding. No lacerations. Baby Date of : 11/05/23 Time of : 08:31 Weeks of gestation at delivery: 36 Infant gender: Female Weight (pounds): 6 Weight (ounces): 4 presentation: vertex position: Right Occiput Anterior Placenta delivery description: Manual Removal and Other (Cord avulsion, placenta at lower segment which was grasped and removed intact, placenta inspected, good uterine tone after delivery) Cord Vessel Description: 3 Vessels score one minute: 7 score five minutes: 9 AMG Delivery Billing Delivery Delivery: Delivery Charge
[2023-11-06 03:49] VITALS: BP 125/83; PULSE 94; RESP 18; TEMP 36.7; O2SAT 100
[2023-11-06 04:19] LABS: Hematocrit 33.7 % (37.0-47.0); Hemoglobin 10.8 g/dL (12.0-15.0)
[2023-11-06 08:10] VITALS: BP 123/76; PULSE 96; RESP 20; TEMP 36.7; O2SAT 100
[2023-11-06] MEDS: MULTIVIT/MIN/PREN/FOL AC/IRON TABLET 1 TAB PO (08:32)
[2023-11-06] MEDS: DOCUSATE SODIUM 100 MG CAPSULE PO ×2 (08:32→15:46)
--- NOTE | 2023-11-06 12:45 | PM.OBPNVD ---
OB - PN: Subj Subjective Date/time seen: 11/06/23 12:45 Patient comments: pain well controlled, tolerating diet and other (Decreasing lochia.) baby status: doing well and nursing well OB - PN: Obj Data Labs 11/06/23 03:36 Labs: Laboratory Results - last 24 hr 11/05/23 11/06/23 07:11 03:36 Hgb 10.8 L Hct 33.7 L RPR Non-reactive OB - PN A/P Plan day: 1 Plan: routine care Comments: Patient doing well. Time Spent With Patient Time: Total time spent is greater than 50% in coordination of care (as documented) at patient's floor/unit and/or counseling patient: Exam Psych: Affect: normal affect Other: Abd: fundus firm below umbilicus, nontender Perineum: healing Ext: nontender
--- NOTE | 2023-11-06 14:55 | WPDANLDPN2 ---
Anes-Prog Note L&D Date/Time: 11/06/23 14:55 Comfortable throughout: labor and delivery Neuraxial method: epidural Epidural/Spinal procedure site: clean & non-tender Neuro status: Neuro function grossly intact. Cardiovascular status: normal Respiratory status: normal Airway patency: baseline Mental status: baseline Post-Op hydration status: normal Vital Signs: Last Vital Signs Temp 36.7 C 11/06/23 08:10 Pulse 96 11/06/23 08:10 Resp 20 11/06/23 08:10 BP 123/76 11/06/23 08:10 Pulse Ox 100 11/06/23 08:10 O2 Del Method Room Air 11/06/23 08:30 Pain score (VAS): 0 Post-procedural complaints: none Patient feedback: Patient satisfied with anesthetic care.
[2023-11-06] MEDS: IBUPROFEN 600 MG TABLET PO (17:00)
[2023-11-06 18:44] VITALS: BP 129/87; PULSE 98; RESP 18; TEMP 36.6; O2SAT 99
[2023-11-07] MEDS: IBUPROFEN 600 MG TABLET PO (07:26)
[2023-11-07] MEDS: MULTIVIT/MIN/PREN/FOL AC/IRON TABLET 1 TAB PO (07:26)
[2023-11-07 08:30] VITALS: BP 132/86; PULSE 102; RESP 16; TEMP 36.6; O2SAT 100
--- NOTE | 2023-11-07 12:30 | PC.NURSE ---
Patient to view the discharge video Mother & Baby Care, The First Two Weeks online. Patient was given the opportunity and encouraged to ask questions. Patient verbalized understanding of information shared and has been given the mother/baby guide for home reference.
[2023-11-08 09:23] VITALS: BP 125/79; PULSE 99; RESP 18; TEMP 37.1; O2SAT 100
== END 2023-11-07 12:45 | disposition home or self-care (01) | DRG 806 ==
LOC: ANHLDR 07:05 → ANHOB2 11:18
PROVIDERS: Admitting Provider Obstetrics & Gynecology; PCP Family Medicine; Visit Provider Obstetrics & Gynecology
DX: O60.14X0 Preterm labor third trimester with preterm delivery third trimester, not applicable or unspecified (principal); O98.52 Other viral diseases complicating childbirth; Z37.0 Single live birth; Z3A.36 36 weeks gestation of pregnancy
CPT/HCPCS: 36415; 85014; 85018; 85025; 86592; 86850; 86900; 86901; A9270; J2590; J2795; J7120

== ENCOUNTER 2024-10-12 16:47 | Emergency (ER) | payer BC, SELFPAY ==
--- NOTE | ~2024-10-12 | XR_ITS ---
EXAMINATION: XR chest 2V DATE: 10/12/2024 17:03 INDICATION: Chest pain. TECHNIQUE: Frontal and lateral views of the chest were obtained. COMPARISON: None. FINDINGS: There is no pneumonia, pleural effusion, or pneumothorax. The heart size is normal. IMPRESSION: 1. No acute cardiopulmonary disease. Reviewed, dictated and finalized at location A. T MET[employer]AN
--- NOTE | 2024-10-12 16:48 | ECG_ITS ---
Test Date: 2024-10-12 16:52:54 Measurements Intervals [place] Rate: 92 P: -89 FL: 114 QRS: 24 QRSD: 114 T: 12 QT: 348 QTc: 431 Interpretive Statements ECTOPIC ATRIAL RHYTHM INTRAVENTRICULAR CONDUCTION DELAY LOW QRS VOLTAGE IN PRECORDIAL LEADS NONSPECIFIC T-WAVE ABNORMALITY- ANT/INF LEADS BASELINE ARTIFACT- I, III, AVL ABNORMAL ECG No previous ECG available for comparison Electronically Signed On 10-12-2024 19:00:32 OPERATOR SPECIALIST COMMUNICATIONS by Ok Hall D.O.
--- NOTE | 2024-10-12 16:54 | ED.CHESTPAIN ---
HPI - Chest Pain General Chief Complaint: Chest Pain <DEMIAN Cardenas Last Filed: 10/12/24 16:57> Stated Complaint: chest pain <DEMIAN Cardenas Last Filed: 10/12/24 16:57> Time Seen by Provider: 10/12/24 16:54 <DEMIAN Cardenas Last Filed: 10/12/24 16:57> Focused HPI: Patient is a 29 y/o female who presents to the ED with c/o CP. Patient reports chest pain initially started last night, but resolved on its own. Today at work, was having more persistent midsternal CP which prompted her presentation. Denies aggravating or alleviating factors. Reports mild cough over last few days, denies SOB. Denies fevers, pain or swelling in legs. Does have hx of lymphedema. GENERAL: Well-appearing, well-nourished, and in no acute distress. HEAD: Normocephalic, atraumatic. CHEST: Clear to auscultation. ?No respiratory distress. HEART: Regular rate and rhythm.? MSK: No chest wall tenderness to palpation. NEURO: ?Alert and oriented x3. Patient screened in triage and initial orders placed.? ?Additional care and disposition to be based upon?diagnostic testing and treatment. <DEMIAN Cardenas Last Filed: 10/12/24 16:57> Source: patient <DEMIAN Cardenas Last Filed: 10/12/24 16:57> Mode of arrival: ambulatory <DEMIAN Cardenas Last Filed: 10/12/24 16:57> Limitations: no limitations <DEMIAN Cardenas Last Filed: 10/12/24 16:57> History of Present Illness HPI narrative: Agree with the above triage note. Patient states her chest pain is the center left side of her chest. She describes the pain as a sharp quick pain that intermittently occurs. She cannot identify any aggravating or alleviating factors. Denies shortness of breath, cough or congestion, fever, history of VTE, use of estrogen, hemoptysis, lower extremity edema. <Lindy Adkins PA-C - Last Filed: 10/12/24 22:05> Related Data Allergies/Adverse Reactions: Allergies Allergy/AdvReac Type Severity Reaction Status Date / Time grass pollen AdvReac Mild Itching Verified 05/18/24 11:05 and watering eyes <Jennifer Milian PA-C - Last Filed: 10/12/24 16:57> Review of Systems Review of Systems: All systems reviewed & are unremarkable except as noted in HPI and below <Lindy Adkins PA-C - Last Filed: 10/12/24 22:05> PMFSH Past Medical History Medical History: Medical History BMI 40.0-44.9, adult Cervical polyp HSV (herpes simplex virus) infection Type 1 <Jennifer Milian PA-C - Last Filed: 10/12/24 16:57> Family History Family History: Family History Grandparent Diabetes mellitus Heart disease Mother Ovarian cyst Father No problems noted. Sibling No problems noted. <Jennifer Milian PA-C - Last Filed: 10/12/24 16:57> Social History Social History: Social History Smoking status: Never smoker Second hand tobacco smoke exposure: No Alcohol intake: current Drinks per week: 1 Substance use: never Substance use type: does not use Do You Feel Safe in your Home?: No Lack of Transportation: No Lack of Food: Never True Current Housing: I Have Housing Concerned About Future Housing: No Difficulty Paying Gas/Electric Bills: No Difficulty Paying for Meds: No Currently Unemployed: No Education: Bachelor's Degree Difficulty w/ Childcare or Family Care: No Living arrangements: alone Occupation/Education: occupation Additional occupation/education comments: [employer] Gender identity (if verbalized by the patient): Female Sexual Orientation (if Verbalized by the Patient): Straight or Heterosexual Spiritual care concerns: No <Jennifer Milian PA-C - Last Filed: 10/12/24 16:57> Exam Narrative: GENERAL: Well-appearing, well-nourished, and in no acute distress. HEAD: Normocephalic, atraumatic. EYES: EOMI. ENT: Nares clear, no rhinorrhea or epistaxis. Mucous membranes moist. NECK: Supple. CHEST: Clear to auscultation. No respiratory distress. Tenderness to the left costosternal border with no overlying skin changes HEART: Regular rate and rhythm. No murmur heard. Normal peripheral pulses. ABDOMEN: Soft, nontender, nondistended, normal active bowel sounds. EXTREMITIES: Normal range of motion. No edema. Negative Homans bilaterally SKIN: Warm, dry, no rash. NEURO: No focal deficits. Alert and oriented x3 <DEMIAN Navas Last Filed: 10/12/24 22:05> Course Vital Signs Vital signs: Vital Signs Temperature 97.7 F 10/12/24 17:00 Pulse Rate 97 10/12/24 17:00 Respiratory Rate 18 10/12/24 17:00 Blood Pressure 116/79 10/12/24 17:00 Pulse Oximetry 100 10/12/24 17:00 Temperature 97.7 F 10/12/24 17:00 Pulse Rate 97 10/12/24 17:00 Respiratory Rate 18 10/12/24 17:00 Blood Pressure 116/79 10/12/24 17:00 Pulse Oximetry 100 10/12/24 17:00 <DEMIAN Cardenas Last Filed: 10/12/24 16:57> Vital Signs Temperature 97.7 F 10/12/24 17:00 Pulse Rate 97 10/12/24 17:00 Respiratory Rate 18 10/12/24 17:00 Blood Pressure 116/79 10/12/24 17:00 Pulse Oximetry 100 10/12/24 17:00 Temperature 97.7 F 10/12/24 17:00 Pulse Rate 97 10/12/24 17:00 Respiratory Rate 18 10/12/24 17:00 Blood Pressure 116/79 10/12/24 17:00 Pulse Oximetry 100 10/12/24 17:00 <DEMIAN Navas Last Filed: 10/12/24 22:05> MDM - Chest Pain MDM Narrative Medical decision making narrative: MSE by TYLOR in triage. <Jennifer Milian PA-C - Last Filed: 10/12/24 16:57> MSE by TYLOR in triage. 29-year-old female presents to the emergency department for anterior chest wall pain for 1 day. Pain is intermittent. Described as a sharp quick pain. Aggravating or alleviating factors. Vitals are stable. She is afebrile nontoxic appearing. EKG shows ectopic atrial rhythm, nonspecific T-wave abnormality in anterior inferior leads, no ischemic changes. Troponin is undetectable x2. CBC without leukocytosis or anemia. Chemistries are unremarkable. Lipase is normal. Chest x-ray shows no acute cardiopulmonary findings. Patient is updated on workup. Her presentation is consistent with costochondritis. Will provide course of NSAIDs (denies possibility of , she is currently on her menstrual period.) Advised to follow-up with her PCP. Strict ED return precautions discussed. She is agreeable to plan verbalized understanding. Discharged in stable condition for <Lindy Adkins PA-C - Last Filed: 10/12/24 22:05> Lab Data Result diagrams: 10/12/24 16:58 10/12/24 16:58 <Jennifer Milian PA-C - Last Filed: 10/12/24 16:57> Labs: Lab Results 10/12/24 10/12/24 Range/Units 16:58 21:07 WBC 8.0 (4.5-10.0) K/mm3 RBC 4.07 L (4.2-5.4) M/mm3 Hgb 12.8 (12.0-15.0) g/dL Hct 37.8 (37.0-47.0) % MCV 92.9 (80-100) fl MCH 31.4 (26-34) pg MCHC 33.9 (32-36) g/dl RDW 12.1 (11.5-14.5) % Plt Count 326 (150-375) k/mm3 MPV 9.8 (7.4-10.4) fl Immature Gran % (Auto) 0.2 (0-0.5) % Neut % (Auto) 60.0 (45.5-73.1) % Lymph % (Auto) 31.6 (18.3-44.2) % [place] % (Auto) 5.5 (2.6-8.5) % Eos % (Auto) 2.1 (0-4.4) % Baso % (Auto) 0.6 (0.2-1.2) % Lymph # (Auto) 2.53 (0.9-3.2) K/mm3 [place] # (Auto) 0.4 (0.1-0.6) K/mm3 Eos # (Auto) 0.2 (0-0.3) K/mm3 Baso # (Auto) 0.1 (0.0-0.1) K/mm3 Abs Immat Gran (auto) 0.02 (0.00-0.031) K/mm3 Absolute Neuts (auto) 4.8 (1.3-6.7) K/mm3 Absolute Nucleated RBC 0.000 (0.0-0.012) K/mm3 Nucleated RBC % 0.0 (0.0-0.2) % PT 12.5 (11.1-14.7) Seconds INR 0.9 APTT 27.4 (22.3-36.8) Seconds Sodium 136 L (137-145) mmol/L Potassium 3.8 (3.4-5.0) mmol/L Chloride 103 (98-107) mmol/L Carbon Dioxide 27 (22-30) mmol/L Anion Gap 6 (4-12) mmol/L BUN 11 (7-17) mg/dL Creatinine 0.70 (0.7-1.0) mg/dL Estim Creat Clear Calc 128 ml/min Estimated GFR > 60 (59 - ) Glucose 91 (65-110) mg/dL Calcium 9.4 (8.4-10.2) mg/dL Total Bilirubin 0.7 (0.2-1.3) mg/dL AST 20 (14-36) U/L ALT 14 (6-35) U/L Alkaline Phosphatase 78 (38-126) U/L Troponin I < 0.012 < 0.012 (0.000-0.034) ng/mL Total Protein 8.0 (6.3-8.2) g/dL Albumin 4.4 (3.5-5.1) g/dL Lipase 88 (23-300) U/L <Jennifer Milian PA-C - Last Filed: 10/12/24 16:57> Lab Results 10/12/24 10/12/24 Range/Units 16:58 21:07 WBC 8.0 (4.5-10.0) K/mm3 RBC 4.07 L (4.2-5.4) M/mm3 Hgb 12.8 (12.0-15.0) g/dL Hct 37.8 (37.0-47.0) % MCV 92.9 (80-100) fl MCH 31.4 (26-34) pg MCHC 33.9 (32-36) g/dl RDW 12.1 (11.5-14.5) % Plt Count 326 (150-375) k/mm3 MPV 9.8 (7.4-10.4) fl Immature Gran % (Auto) 0.2 (0-0.5) % Neut % (Auto) 60.0 (45.5-73.1) % Lymph % (Auto) 31.6 (18.3-44.2) % [place] % (Auto) 5.5 (2.6-8.5) % Eos % (Auto) 2.1 (0-4.4) % Baso % (Auto) 0.6 (0.2-1.2) % Lymph # (Auto) 2.53 (0.9-3.2) K/mm3 [place] # (Auto) 0.4 (0.1-0.6) K/mm3 Eos # (Auto) 0.2 (0-0.3) K/mm3 Baso # (Auto) 0.1 (0.0-0.1) K/mm3 Abs Immat Gran (auto) 0.02 (0.00-0.031) K/mm3 Absolute Neuts (auto) 4.8 (1.3-6.7) K/mm3 Absolute Nucleated RBC 0.000 (0.0-0.012) K/mm3 Nucleated RBC % 0.0 (0.0-0.2) % PT 12.5 (11.1-14.7) Seconds INR 0.9 APTT 27.4 (22.3-36.8) Seconds Sodium 136 L (137-145) mmol/L Potassium 3.8 (3.4-5.0) mmol/L Chloride 103 (98-107) mmol/L Carbon Dioxide 27 (22-30) mmol/L Anion Gap 6 (4-12) mmol/L BUN 11 (7-17) mg/dL Creatinine 0.70 (0.7-1.0) mg/dL Estim Creat Clear Calc 128 ml/min Estimated GFR > 60 (59 - ) Glucose 91 (65-110) mg/dL Calcium 9.4 (8.4-10.2) mg/dL Total Bilirubin 0.7 (0.2-1.3) mg/dL AST 20 (14-36) U/L ALT 14 (6-35) U/L Alkaline Phosphatase 78 (38-126) U/L Troponin I < 0.012 < 0.012 (0.000-0.034) ng/mL Total Protein 8.0 (6.3-8.2) g/dL Albumin 4.4 (3.5-5.1) g/dL Lipase 88 (23-300) U/L <DEMIAN Navas Last Filed: 10/12/24 22:05> Discharge Plan Discharge Clinical Impression: Costochondritis, Ectopic atrial rhythm <DEMIAN Cardenas Last Filed: 10/12/24 16:57> Patient Disposition: Home, Self-Care <DEMIAN Cardenas Filed: 10/12/24 16:57> Condition: Stable <DEMIAN Cardenas Last Filed: 10/12/24 16:57> Instructions: Antibiotic Form, Chest Pain (ED) <DEMIAN Cardenas Last Filed: 10/12/24 16:57> Additional Instructions: Your evaluated in the emergency department for chest pain. Your presentation is consistent with costochondritis as discussed. Please take the ibuprofen as directed. Follow-up with your primary care provider. Return to the emergency department if you develop changing or worsening symptoms. <DEMIAN Cardenas Last Filed: 10/12/24 16:57> Prescriptions: New ibuprofen 800 mg tablet 800 mg PO TID PRN (Reason: pain) Qty: 20 0RF <DEMIAN Cardenas Last Filed: 10/12/24 16:57> Follow-up/Referrals: Ervin,Flor Gustafson NP [Primary Care Provider] - <Jennifer Milian PA-C - Last Filed: 10/12/24 16:57>
[2024-10-12 17:00] VITALS: BP 116/79; PULSE 97; RESP 18; TEMP 36.5; O2SAT 100
[2024-10-12 17:05] LABS: Basophils Absolute Auto 0.1 K/mm3 (0.0-0.1); Basophils Percent Auto 0.6 % (0.2-1.2); Eosinophils Absolute Auto 0.2 K/mm3 (0-0.3); Eosinophils Percent Auto 2.1 % (0-4.4); Hematocrit 37.8 % (37.0-47.0); Hemoglobin 12.8 g/dL (12.0-15.0); Immature Granulocyte Absolute 0.02 K/mm3 (0.00-0.031); Immature Granulocyte Percent A 0.2 % (0-0.5); Lymphocytes Absolute Auto 2.53 K/mm3 (0.9-3.2); Lymphocytes Percent Auto 31.6 % (18.3-44.2); Mean Corpuscular HGB Conc 33.9 g/dl (32-36); Mean Corpuscular Hemoglobin 31.4 pg (26-34); Mean Corpuscular Volume 92.9 fl (80-100); Mean Platelet Volume 9.8 fl (7.4-10.4); Monocytes Absolute Auto 0.4 K/mm3 (0.1-0.6); Monocytes Percent Auto 5.5 % (2.6-8.5); Neutrophils Absolute Auto 4.8 K/mm3 (1.3-6.7); Platelet Count Result 326 k/mm3 (150-375); Red Blood Count 4.07 M/mm3 (4.2-5.4); Red Cell Distribution Width 12.1 % (11.5-14.5)
[2024-10-12 17:18] LABS: INR 0.9; Prothrombin Time 12.5 Seconds (11.1-14.7)
[2024-10-12 17:19] LABS: Alanine Aminotransferase 14 U/L (6-35); Albumin Level 4.4 g/dL (3.5-5.1); Alkaline Phosphatase 78 U/L (38-126); Anion Gap 6 mmol/L (4-12); Aspartate Amino Transferase 20 U/L (14-36); Bilirubin,Total 0.7 mg/dL (0.2-1.3); Blood Urea Nitrogen 11 mg/dL (7-17); Calcium 9.4 mg/dL (8.4-10.2); Carbon Dioxide 27 mmol/L (22-30); Chloride 103 mmol/L (98-107); Estimated CRCL calculation 128 ml/min; Estimated Glomerular Filt Rate > 60; Glucose 91 mg/dL (65-110); Lipase 88 U/L (23-300); Partial Thromboplastin Time 27.4 Seconds (22.3-36.8); Potassium 3.8 mmol/L (3.4-5.0); Sodium 136 mmol/L (137-145)
[2024-10-12 17:30] LABS: Troponin I < 0.012 ng/mL (0.000-0.034)
--- NOTE | 2024-10-12 21:07 | ECG_ITS ---
Test Date: 2024-10-12 21:09:26 Measurements Intervals [place] Rate: 79 P: 267 NE: 130 QRS: 11 QRSD: 86 T: 16 QT: 365 QTc: 419 Interpretive Statements ECTOPIC ATRIAL RHYTHM BORDERLINE T WAVE ABNORMALITY- ANT/INF LEADS ABNORMAL ECG Compared to ECG 10/12/2024 16:52:54 NO SIGNIFICANT CHANGE Electronically Signed On 10-13-2024 05:54:07 ENAMEL MACHINE OPERATOR by Ok Hall D.O.
[2024-10-12 21:38] LABS: Troponin I < 0.012 ng/mL (0.000-0.034)
[2024-10-12] MEDS: IBUPROFEN 400 MG TABLET 800 MG PO (22:21)
[2024-10-12 22:24] VITALS: O2SAT 100
[2024-10-12 22:27] VITALS: BP 127/90; PULSE 74; RESP 16; TEMP 36.5; O2SAT 100
== END 2024-10-12 22:35 | disposition home or self-care (01) ==
LOC: ANHED 22:14
PROVIDERS: Emergency Medicine; Emergency Provider Physician Assistant; PCP Family Medicine
DX: I49.8 Other specified cardiac arrhythmias (principal); M94.0 Chondrocostal junction syndrome [Tietze]; Z86.018 Personal history of other benign neoplasm; I45.9 Conduction disorder, unspecified; R94.31 Abnormal electrocardiogram [ECG] [EKG]
CPT/HCPCS: 36415; 71046; 80053; 83690; 84484; 85025; 85610; 85730; 93005; 99284; A9270

== ENCOUNTER 2025-01-14 12:12 | Outpatient (CLI) | payer BC, SELFPAY ==
--- OUTSIDE RECORDS SUMMARY | 2025-01-14 12:16 | XMS_ITS | Clinical Summary ---
Author Organization [facility] Address [address] [place] [address] Care Team Providers Care Cleaning Technician Name Role Phone Flor Mueller NP Primary Care Provider [phone] Allergies No known active allergies Medications No known medications Active Problems Problem Noted Date Diagnosed Date Arthralgia of hip 07/28/2013 Chest pain 04/12/2011 Lymphedema 04/12/2011 Overview (03/07/2018): Description: Left lower extremity Immunizations Immunization Administration Dates Next Due Tdap 10/18/2021 Medical History Medical History Date Comments Patient denies medical problems Social History Tobacco Use Types Packs/Day Years Used Date Smoking Tobacco: Never Smokeless Tobacco: Never Alcohol Use Standard Drinks/Week Comments Yes 0 (1 standard drink = 0.6 oz pur e alcohol) ocassionally Personal Safety Answer Date Recorded Getting School Help Needed Not on file 09/06 Comments Unknown Sex and Gender Information Value Date Recorded Sex Assigned at Not on file Legal Sex Female 4:44 AM PRECISION LENS GRINDER APPRENTICE Gender Identity Female 10/18/2021 11:17 PM PRECISION LENS GRINDER APPRENTICE Sexual Orientation Not on file Obstetrics History Para Term AB IAB SAB Ectopic Multiple Livin g Live Births 1 Date Outcome GA Total Labor Labor/2nd/3rd Weight Sex Type Anes PTL Alanna A1 A5 Name Clin Last Filed Vital Signs Vital Sign Reading Time Taken Comments Blood Pressure 120/87 08/20/2023 8:00 AM CDT Pulse 96 08/20/2023 8:00 AM CDT Temperature 36.9 C (98.4 F) 08/20/2023 6:03 AM CDT Respiratory Rate 18 08/20/2023 8:00 AM CDT Oxygen Saturation 100% 08/20/2023 8:00 AM CDT Inhaled Oxygen Concentration - - Weight 99 kg (218 lb 4.1 oz) 08/20/2023 6:03 AM CDT Height 165 cm (5' 4.96 ) 08/20/2023 6:03 AM CDT Body Mass Index 36.36 08/20/2023 6:03 AM CDT Plan of Treatment Health Maintenance Due Date Last Done Comments Cervical Cancer Screening 1996 Depression Screening 1996 Hepatitis C Screening 1996 Varicella Vaccines (1 of 2 - 13+ 2-dose series) 2009 Regular Well Visit/Exam 18-64 2014 Covid-19 Vaccine ( season) 2024 03/30/2021, 03/09/2021 Influenza Vaccine (#1) 2024 12/05/2019 DTaP/Tdap/Td Vaccine (7 - Td or Tdap) 10/18/2031 10/18/2021, 09/17/2019, 2000, Additional history exists Hepatitis B Screening Completed 03/29/1997 , 1996, 1996 HPV Vaccines Aged Out No longer eligi ble based on patient's age to complete this topic Pneumococcal vaccine <65 Aged Out No longer eligible based on patient's age to complete this topic Insurance [facility] [employer] Member Subscriber Plan / Payer (Ef fective 2018-Present) Name:Hetal Harvey Relation to Subscriber:Child Name:JUAN MANUELLORI A Date of :1972 Address: [address] [place] [id number] Payer ID:[id number] (NAIC) Group ID:Not on file Type:MANAGED CARE OTHER Address: [address] [place] [employer] [place] Care Teams Cleaning Technician Relationship Specialty Start Date End Date Flor Mueller NP [address] [place] [address] PCP - General Nurse Practitioner 07/17/23
--- OUTSIDE RECORDS SUMMARY | 2025-01-14 12:16 | XMS_ITS | Clinical Summary ---
Author Organization [facility] Address [address] [facility] [place] [address] Phone Care Team Providers Care Drying Supervisor Name Role Phone Unavailable Primary Care Provider Unavailabl e Allergies No known active allergies Medications vitamin-iron fumarate-folic acid 27 mg-0.8 mg Tablet Take 1 Tablet by mouth daily. 04/26/2023 Active CALCIUM CARBONATE-VITAMI N D3 ORAL Take by mouth. Active ondansetron (ZOFRAN ODT) 4 mg Tablet, Rapid Dissolve Take 4 mg by mouth every 8 hours as needed. 04/26/2023 Active diphenhydrAMINE (BENADRYL) 25 mg tablet Take 25 mg by mouth every 6 hours as needed for Allergies. 1-2 as needed Active Active Problems Problem Noted Date Diagnosed Date Cervical polyp 07/17/2023 Vaginal bleeding during 06/04/2023 Encounters Date Type Department Care Team Description 12/23/2024 External Device Data STL ABSTRACTION Provider, Abstract from Last 3 Months Family History Medical History Relation Name Comments Diabetes Maternal Grandmother Hypertension Maternal Grandmother Hyperthyroidism Mother Black's Relation Name Status Comments Maternal Grandmother Mother Social History Tobacco Use Types Packs/Day Years Used Date Smoking Tobacco: Never Smokeless Tobacco: Never Tobacco Cessation:Counseling Given: Not Answered Alcohol Use Standard Drinks/Week Comments Not Currently 0 (1 standard drink = 0.6 oz pur e alcohol) Feeling Safe Answer Date Recorded Are you in a relationship wi th someone who hurts you emotionally and/or physically? Unable to obtain 08/20/2023 Food Insecurity Answer Date Recorded Social/Environmental Concerns No concerns Transportation Needs Answer Date Record ed Social/Environmental Concerns No concerns Housing Stability Answer Date Recorded Social/Environmental Concerns No concerns Utility Needs Answer Date Recorded Social/Environmental Concerns No concerns Comments No Sex and Gender Information Value Date Recorded Sex Assigned at Not on file Legal Sex Female 9:49 AM CDT Gender Identity Not on file Sexual Orientation Not on file Last Filed Vital Signs Vital Sign Reading Time Taken Comments Blood Pressure 108/67 08/21/2023 1:02 PM CDT Pulse 111 08/14/2023 4:33 PM CDT Temperature 36.4 C (97.5 F) 08/21/2023 1:02 PM CDT Respiratory Rate 18 08/21/2023 1:02 PM CDT Oxygen Saturation 99% 08/20/2023 10:00 AM CDT Inhaled Oxygen Concentration - - Weight 111.1 kg (245 lb) 08/20/2023 10:04 AM CDT Height 165.1 cm (5' 5 ) 08/20/2023 10:04 AM CDT Body Mass Index 40.77 08/20/2023 10:04 AM CDT Plan of Treatment Health Maintenance Due Date Last Done Comments HEPATITIS B VACCINES (1 of 3 - 19+ 3-dose series) 2015 CERVICAL CANCER SCREENING 2017 INFLUENZA VACCINE (#1) 2024 DTAP/TDAP/TD VACCINES (2 - T d or Tdap) 10/18/2031 10/18/2021 HPV VACCINES Aged Out No longer eligi ble based on patient's age to complete this topic PNEUMOCOCCAL VACCINE 0-64 YEARS Aged Out No longer eligible based on patient's age to complete this topic Insurance [facility] BLUE ACCESS CHOICE Advance Directives For more information, please contact: [phone] * Full Code (Latest Code Status on File) Date Activated Date Inactivated Comments 08/20/2023 11:21 AM 08/21/2023 4:44 PM
--- OUTSIDE RECORDS SUMMARY | 2025-01-14 12:16 | XMS_ITS | Clinical Summary ---
Author Organization [facility] Address [facility] [place] [address] Care Team Providers Care Business Process Associate Name Role Phone Flor Mueller SERVICE COORDINATOR [facility]LD[facility]LY FACILITY Primary Care Provider +1- [phone] Allergies No known active allergies Medications ondansetron (ZOFRAN-ODT) 4 MG disintegrating tablet Take 1 tablet (4 mg total) by mouth every 8 (eight) hours as needed for Nausea. 20 tablet 3 Active ( VITAMINS) 28-0.8 MG tablet Take 1 tablet by mouth daily. 30 tablet 3 Active Social History Tobacco Use Types Packs/Day Years Used Date Smoking Tobacco: Never Smokeless Tobacco: Never Tobacco Cessation:Counseling Given: Not Answered Alcohol Use Standard Drinks/Week Comments Not Currently 0 (1 standard drink = 0.6 oz pur e alcohol) Comments Yes Sex and Gender Information Value Date Recorded Sex Assigned at Not on file Legal Sex Female 5:55 PM CDT Gender Identity Not on file Sexual Orientation Not on file Last Filed Vital Signs Vital Sign Reading Time Taken Comments Blood Pressure 112/77 08/28/2023 8:00 AM CDT Pulse 102 08/28/2023 10:20 AM CDT Temperature 36.7 C (98.1 F) 08/28/2023 7:45 AM CDT Respiratory Rate 19 08/28/2023 11:0 0 AM CDT Oxygen Saturation 100% 04/26/2023 1:31 PM CDT Inhaled Oxygen Concentration - - Weight 99.3 kg (218 lb 14.7 oz) 04/26/2023 1:31 PM CDT Height 165.1 cm (5' 5 ) 04/26/2023 1:31 PM CDT Body Mass Index 36.43 04/26/2023 1:31 PM CDT Plan of Treatment Health Maintenance Due Date Last Done Comments Cervical Cancer Screening Pap Smear (Age 21 to 29) Every 3 Years 1996 Cervical Cancer Screening 1996 Annual Physical 1999 Hepatitis C 2014 COVID-19 Vaccine (3 - 2023- season) 2024 03/30/2021, 03/09/2021 Influenza Adult (#1) 2024 12/05/2019 DTaP, Tdap and Td Vaccines (7 - Td or Tdap) 10/18/2031 10/18/2021, 09/17/2019, 2000, Additional history exists RSV Immunization or 60+ Years (1 - 1-dose 75+ series) 2071 Hepatitis B Vaccines Completed 03/29/1997, 1996, 1996 HPV Vaccines Aged Out No longer eligi ble based on patient's age to complete this topic Meningococcal B Vaccine Aged Out No l onger eligible based on patient's age to complete this topic Meningococcal Vaccine Aged Out No mark romelia eligible based on patient's age to complete this topic Pneumococcal Vaccine: Pediatrics (0 to 5 Years) and At-Risk Patients (6 to 64 Years) Aged Out No longer eligible based on patient's age to complete this topic RSV Immunizations Under 20 Months Aged Out No longer eligible based on patient's age to complete this topic Insurance [facility] Care Teams Business Process Associate Relationship Specialty Start Date End Date Flor Mueller FNP [address] [phone] PCP - General FAMILY MEDICINE SPORTS MEDICINE 04/26/23
--- OUTSIDE RECORDS SUMMARY | 2025-01-14 12:16 | XMS_ITS | Referral Summary ---
Author Organization [facility] Address [address] [place] [address] Care Team Providers Care Global Technical Writer Name Role Phone Flor Mueller NP Primary Care Provider +1- [phone] Allergies No known active allergies Medications No known medications Active Problems Problem Noted Date Diagnosed Date Arthralgia of hip 07/28/2013 Chest pain 04/12/2011 Lymphedema 04/12/2011 Overview (03/07/2018): Description: Left lower extremity Immunizations Immunization Administration Dates Next Due Tdap 10/18/2021 Social History Tobacco Use Types Packs/Day Years [...] on file Legal Sex Female 4:44 AM MARRIAGE AND FAMILY SOCIAL WORKER Gender Identity Female 10/18/2021 11:17 PM MARRIAGE AND FAMILY SOCIAL WORKER Sexual Orientation Not on file Last Filed [...] 08/20/2023 6:03 AM CDT Plan of Treatment Not on file Insurance [facility] [employer] IN BLUE ACCESS IN [facility]UE [facility] Care Teams Global Technical Writer Relationship Specialty Start Date End Date Flor Mueller NP [address] [place] [address] PCP - General Nurse Practitioner 07/17/23
[2025-01-14 12:55] LABS: Basophils Percent Auto 0.5 % (0.2-1.2); Eosinophils Absolute Auto 0.1 K/mm3 (0-0.3); Eosinophils Percent Auto 1.3 % (0-4.4); Hematocrit 40.9 % (37.0-47.0); Hemoglobin 13.5 g/dL (12.0-15.0); Immature Granulocyte Absolute 0.02 K/mm3 (0.00-0.031); Immature Granulocyte Percent A 0.3 % (0-0.5); Lymphocytes Absolute Auto 2.36 K/mm3 (0.9-3.2); Lymphocytes Percent Auto 31.6 % (18.3-44.2); Mean Corpuscular Hemoglobin 31.1 pg (26-34); Mean Corpuscular Volume 94.2 fl (80-100); Mean Platelet Volume 9.7 fl (7.4-10.4); Monocytes Absolute Auto 0.5 K/mm3 (0.1-0.6); Monocytes Percent Auto 6.3 % (2.6-8.5); Neutrophils Absolute Auto 4.5 K/mm3 (1.3-6.7); Platelet Count Result 341 k/mm3 (150-375); Red Blood Count 4.34 M/mm3 (4.2-5.4); Red Cell Distribution Width 12.3 % (11.5-14.5); White Blood Count 7.5 K/mm3 (4.5-10.0)
[2025-01-15 17:58] LABS: Prolactin 8.2 ng/mL
== END 2025-01-14 12:13 | disposition home or self-care (01) ==
PROVIDERS: PCP Family Medicine; Visit Provider Nurse Practitioner Obstetrics & Gynecology
DX: N92.1 Excessive and frequent menstruation with irregular cycle (principal)
CPT/HCPCS: 36415; 84146; 84443; 85025

== ENCOUNTER 2025-07-16 07:21 | Emergency (ER) | payer BC, SELFPAY ==
--- OUTSIDE RECORDS SUMMARY | 2025-07-16 07:24 | XMS_ITS | Clinical Summary ---
Author Organization [facility] Address [facility] [place] [address] Care Team Providers Care Senior Program Manager Name Role Phone Flor Mueller ETHICS OFFICER Primary Care Provider +1- [phone] Allergies No known active allergies Medications ondansetron [...] 1:31 PM CDT Height 165.1 cm (5' 5) 04/26/2023 1:31 PM CDT Body Mass Index 36.43 04/26/2023 1:31 PM CDT Plan of Treatment Health Maintenance Due Date Last Done Comments Cervical Cancer Screening Pap Smear (Age 21 to 29) Every 3 Years 1996 Cervical Cancer Screening 1996 Annual Physical 1999 Hepatitis C 2014 HPV Vaccines (1 - 3-dose SCDM series) 2023 COVID-19 Vaccine (3 - season) 2024 03/30/2021, 03/09/2021 DTaP, Tdap and Td Vaccines (7 - Td or Tdap) 10/18/2031 10/18/2021, 09/17/2019, 2000, Additional history exists RSV Immunization or 60+ Years (1 - 1-dose 75+ series) 2071 Hepatitis B Vaccines Completed 03/29/1997, 1996, 1996 Meningococcal B Vaccine Aged Out No l onger eligible based on patient's age to complete this topic Meningococcal Vaccine Aged Out No mark romelia eligible based on patient's age to complete this topic Pneumococcal Vaccine: Pediatrics (0 to 5 Years) and At-Risk Patients (6 to 49 Years) Aged Out No longer eligible based on patient's age to complete this topic RSV Immunizations Under 20 Months Aged Out No longer eligible based on patient's age to complete this topic Insurance [facility] Care Teams Senior Program Manager Relationship Specialty Start Date End Date Flor uMeller FNP [address] [phone] PCP - General FAMILY MEDICINE SPORTS MEDICINE 04/26/23
--- OUTSIDE RECORDS SUMMARY | 2025-07-16 07:25 | XMS_ITS | Clinical Summary ---
Author Organization [facility] Address [address] [place] [address] Care Team Providers Care Gas Meter Installer Helper Name Role Phone Flor Mueller NP Primary Care Provider +1- [phone] Allergies No known active allergies Medications No [...] on file Legal Sex Female 4:44 AM POLICY MANAGER Gender Identity Female 10/18/2021 11:17 PM POLICY MANAGER Sexual Orientation Not on file Obstetrics History [...] 6:03 AM CDT Height 165 cm (5' 4.96) 08/20/2023 6:03 AM CDT Body Mass Index 36.36 08/20/2023 6:03 AM CDT Plan of Treatment Health Maintenance Due Date Last Done Comments Cervical Cancer Screening 1996 Depression Screening 1996 Hepatitis C Screening 1996 Varicella Vaccines (1 of 2 - 13+ 2-dose series) 2009 Regular Well Visit/Exam 18-64 2014 HPV Vaccines (1 - 3-dose SCDM series) 2023 Covid-19 Vaccine ( - season) 2024 03/30/2021, 03/09/2021 Influenza Vaccine (#1) 2025 12/05/2019 DTaP/Tdap/Td Vaccine (7 - Td or Tdap) 10/18/2031 10/18/2021, 09/17/2019, 2000, Additional history exists Hepatitis B Screening Completed 03/29/1997 , 1996, 1996 Pneumococcal vaccine <65 Aged Out No longer eligible based on patient's age to complete this topic Insurance [facility] [employer] Member Subscriber Plan / Payer (Ef fective 2018-Present) Name:Hetal Harvey Relation to Subscriber:Child Name:JUAN MANUELLORI A Date of :1972 Address: [address] [place] [id number] Payer ID:[id number] (NAIC) Group ID:Not on file Type:MANAGED CARE OTHER Address: [address] [place] Care Teams Gas Meter Installer Helper Relationship Specialty Start Date End Date Flor Mueller NP PCP - General Nurse Practitioner 07/17/23
--- OUTSIDE RECORDS SUMMARY | 2025-07-16 07:25 | XMS_ITS | Clinical Summary ---
Author Organization [facility] Address [address] [facility] [place] [address] Phone Care Team Providers Care Manual Arts Therapy Teacher Name Role Phone Unavailable Primary Care Provider [...] Cervical polyp 07/17/2023 Vaginal bleeding during 06/04/2023 Family History Medical History Relation Name Comments [...] 10:04 AM CDT Height 165.1 cm (5' 5) 08/20/2023 10:04 AM CDT Body Mass Index 40.77 08/20/2023 10:04 AM CDT Plan of Treatment Health Maintenance Due Date Last Done Comments HPV VACCINES (1 - 3-dose series) 2011 HEPATITIS B VACCINES (1 of 3 - 19+ 3-dose series) 06/25 CERVICAL CANCER SCREENING 2017 HPV/Cotest (21-29) 2017 PAP SMEAR 2017 INFLUENZA VACCINE (#1) 2025 DTAP/TDAP/TD VACCINES (2 - Td or Tdap) 10/18/2031 Insurance [facility] BLUE ACCESS CHOICE Advance Directives For more information, please contact: [phone] * Full Code (Latest Code Status on File) Date Activated Date Inactivated Comments 08/20/2023 11:21 AM 08/21/2023 4:44 PM
[2025-07-16 07:28] VITALS: BP 121/83; PULSE 78; RESP 16; TEMP 36.5; O2SAT 100
--- NOTE | 2025-07-16 07:48 | ED_ITS ---
HPI - General Adult General Chief complaint: Neck Pain/Injury Stated complaint: I think I pulled a muscle in my neck Time Seen by Provider: 07/16/25 07:40 History of Present Illness HPI narrative: Patient is a 30-year-old female who presents ER with pain in her right neck. She is stretching this morning felt a pop. Mainly in the right trapezius area. No numbness or tingling in the arm. She has mild discomfort with turning her head to the right side. No other known injury. No fevers or chills. Related Data Home Medications ?Medication ?Instructions ?Recorded ?Confirmed ?Last Taken ?Type cefdinir 300 mg capsule 300 mg PO Q12H 05/26/25 Unk nown History Allergies Allergy/AdvReac Type Severity Reaction Status Date / Time grass pollen AdvReac Mild Itching Verified 07/16/25 07:28 and watering eyes Review of Systems Constitutional: Constitutional: Reports no additional constitutional complaints Musculoskeletal: Musculoskeletal: Reports no additional musculoskeletal complaints Neurologic: Reports system reviewed and no additional complaints, except as documented [facility] Past Medical History Medical History (Reviewed 05/26/25 @ 09:45 by Audrey Brady [facility]) Cervical polyp BMI 40.0-44.9, adult HSV (herpes simplex virus) infection Type 1 Family History Family History (Reviewed 05/26/25 @ 09:45 by Audrey Brady [facility]) Grandparent Diabetes mellitus Heart disease Mother Ovarian cyst Father No problems noted. Sibling No problems noted. Social History Social History (Reviewed 05/26/25 @ 09:45 by Audrey Brady [facility]) Smoking status: Never smoker Second hand tobacco smoke exposure: No Alcohol intake: former Drinks per week: 1 Substance use: never Substance use type: does not use Do You Feel Safe in your Home?: No Lack of Transportation: No Lack of Food: Never True Current Housing: I Have Housing Concerned About Future Housing: No Difficulty Paying Gas/Electric Bills: No Difficulty Paying for Meds: No Currently Unemployed: No Education: Bachelor's Degree Difficulty w/ Childcare or Family Care: No Living arrangements: alone Occupation/Education: occupation Additional occupation/education comments: [employer] Gender identity (if verbalized by the patient): Female Sexual Orientation (if Verbalized by the Patient): Straight or Heterosexual Spiritual care concerns: No Exam Narrative: GENERAL: Well-appearing, well-nourished, and in no acute distress. HEAD: Normocephalic, atraumatic. ENT: Mucous membranes moist. Neck: No midline tenderness of cervical spine. Mild discomfort mid trapezius right side. EXTREMITIES: Normal range of motion. No edema. SKIN: Warm, dry, no rash. NEURO: Alert and oriented x3. PSYCH: Normal mood and affect. Course Course Emergency Course: Patient resting comfortably. Discussed conservative treatment with anti- inflammatories. Muscle relaxers for the evening if needed. Discharge home. No imaging needed at this time. No bony tenderness. Normal range of motion. No nerve symptoms. Vital Signs Vital signs: Vital Signs Temperature 97.7 F 07/16/25 07:28 Pulse Rate 78 07/16/25 07:28 Respiratory Rate 16 07/16/25 07:28 Blood Pressure 121/83 07/16/25 07:28 Pulse Oximetry 100 07/16/25 07:28 Oxygen Delivery Room Air 07/16/25 07:28 Temperature 97.7 F 07/16/25 07:28 Pulse Rate 78 07/16/25 07:28 Respiratory Rate 16 07/16/25 07:28 Blood Pressure 121/83 07/16/25 07:28 Pulse Oximetry 100 07/16/25 07:28 Oxygen Delivery Room Air 07/16/25 07:28 Medical Decision Making Vital Signs Vital Signs: Vital Signs Temperature 97.7 F 07/16/25 07:28 Pulse Rate 78 07/16/25 07:28 Respiratory Rate 16 07/16/25 07:28 Blood Pressure 121/83 07/16/25 07:28 Pulse Oximetry 100 07/16/25 07:28 Oxygen Delivery Room Air 07/16/25 07:28 Temperature 97.7 F 07/16/25 07:28 Pulse Rate 78 07/16/25 07:28 Respiratory Rate 16 07/16/25 07:28 Blood Pressure 121/83 07/16/25 07:28 Pulse Oximetry 100 07/16/25 07:28 Oxygen Delivery Room Air 07/16/25 07:28 Discharge Plan Discharge Clinical Impression: Neck strain Patient Disposition: Home Condition: Stable Instructions: Neck Pain (ED) Additional Instructions: Please return to the emergency department if you develop severe pain that is not controlled by pain medications or if you are unable to walk because of pain or weakness. Return to the emergency department immediately if you develop fevers, loss of bowel or bladder control (dribbling of urine or having accidents you wouldn't normally have), inability to urinate, numbness of your genital or anal area, or weakness/numbness of your legs or arms as these could all be signs of a serious medical emergency. Patient Language: Japanese Prescriptions: New naproxen 375 mg tablet 375 mg PO BID Qty: 14 0RF cyclobenzaprine 10 mg tablet 10 mg PO HS PRN (Reason: muscle spasm) Qty: 10 0RF No Action cefdinir 300 mg capsule 300 mg PO Q12H ibuprofen 800 mg tablet 800 mg PO TID PRN (Reason: pain) Qty: 20 0RF Follow-up/Referrals: Ervin,Flor Gustafson NP [Primary Care Provider, Medical] - 1 Week Stand Alone Forms: Work/School Release IP
--- OUTSIDE RECORDS SUMMARY | 2025-07-16 08:08 | XMS_ITS | Clinical Summary ---
Author Organization [facility] Address [address] [place] [address] Care Team Providers Care Weight And Test Bar Clerk Name Role Phone Flor Mueller NP Primary Care Provider +1- [phone] Allergies No known active allergies Medications No [...] on file Legal Sex Female 4:44 AM CAMPAIGN ASSOCIATE Gender Identity Female 10/18/2021 11:17 PM CAMPAIGN ASSOCIATE Sexual Orientation Not on file Obstetrics History [...] patient's age to complete this topic Insurance [facility] [employer] Member Subscriber Plan / Payer (Ef fective 2018-Present) Name:Hetal Harvey Relation to Subscriber:Child Name:JUAN MANUELLORI A Date of :1972 Address: [address] [place] [id number] Payer ID:[id number] (NAIC) Group ID:Not on file Type:MANAGED CARE OTHER Address: [address] [place] Care Teams Weight And Test Bar Clerk Relationship Specialty Start Date End Date Flor Mueller NP PCP - General Nurse Practitioner 07/17/23
--- OUTSIDE RECORDS SUMMARY | 2025-07-16 08:08 | XMS_ITS | Clinical Summary ---
Author Organization [facility] Address [address] [facility] [place] [address] Phone Care Team Providers Care Wire Twisting Machine Operator Name Role Phone Unavailable Primary Care Provider [...] (2 - Td or Tdap) 10/18/2031 Insurance [facility] BLUE ACCESS CHOICE Advance Directives For more information, please contact: [phone] * Full Code (Latest Code Status on File) Date Activated Date Inactivated Comments 08/20/2023 11:21 AM 08/21/2023 4:44 PM
--- OUTSIDE RECORDS SUMMARY | 2025-07-16 08:08 | XMS_ITS | Clinical Summary ---
Author Organization [facility] Address [facility] [place] [address] Care Team Providers Care Supervisor Fertilizer Name Role Phone Flor Mueller MANAGED CARE LIAISON Primary Care Provider +1- [phone] Allergies No known active allergies Medications ondansetron [...] patient's age to complete this topic Insurance [facility] Care Teams Supervisor Fertilizer Relationship Specialty Start Date End Date Flor Mueller FNP [address] [phone] PCP - General FAMILY MEDICINE SPORTS MEDICINE 04/26/23
[2025-07-16] MEDS: NAPROXEN 375 MG TABLET PO (08:20)
== END 2025-07-16 08:35 | disposition home or self-care (01) ==
LOC: ANHED 08:06
PROVIDERS: Emergency Provider Emergency Medicine; PCP Family Medicine
DX: S16.1XXA Strain of muscle, fascia and tendon at neck level, initial encounter (principal); X50.9XXA Other and unspecified overexertion or strenuous movements or postures, initial encounter
CPT/HCPCS: 99283; A9270